=== PATIENT | male | born 1970 | race Caucasian/White ===

== ENCOUNTER → 2023-12-31 | Emergency (ER) | payer BC ==
[~2023-12-31] VITALS: Ht 188 cm; Wt 83.9 kg
[~2023-12-31] MED LIST: AMOXICILLIN TRIHYDRATE 250 MG CAPSULE ONE; HYDROCODONE/APAP 10/325MG TABLET ONE; NAPR-1009 PO; PENI500T PO
[2023-12-31 02:56] VITALS: BP 134/81; TEMP 98.5
[2023-12-31] MEDS: HYDROCODONE/APAP 10/325MG TABLET PO ONE (03:51)
[2023-12-31] MEDS: PENICILLIN V POTASSIUM 500 MG TABLET PO ONE (04:18)
[2023-12-31] MEDS: AMOXICILLIN TRIHYDRATE 250 MG CAPSULE PO ONE (04:22)
[2023-12-31 04:23] VITALS: O2SAT 99
== END | disposition home or self-care (01) ==
LOC: ER 02:08
DX: K08.89 Other specified disorders of teeth and supporting structures (principal)

== ENCOUNTER 2024-02-16 04:39 | Emergency (ER) | payer BC, OTHER ==
[~2024-02-16] VITALS: Ht 188 cm; Wt 86.2 kg
[~2024-02-16 04:39] MED LIST changes: -AMOXICILLIN TRIHYDRATE 250 MG CAPSULE ONE; -HYDROCODONE/APAP 10/325MG TABLET ONE
[2024-02-16 06:10] VITALS: BP 134/80; TEMP 98.3; O2SAT 99
[2024-02-16] MEDS ORDERED: AMOXICILLIN TRIHYDRATE 250 MG CAPSULE ONE (06:36)
[2024-02-16] MEDS ORDERED: IBUPROFEN 600 MG TABLET ONE (06:36)
[2024-02-16] MEDS: IBUPROFEN 600 MG TABLET PO ONE (06:37)
[2024-02-16] MEDS: AMOXICILLIN TRIHYDRATE 500 MG CAPSULE PO ONE (06:37)
[2024-02-16] MEDS ORDERED: AMOX500C2 PO (06:53)
== END 2024-02-16 07:01 | disposition home or self-care (01) ==
LOC: ER 04:40
DX: J02.9 Acute pharyngitis, unspecified (principal); Z60.2 Problems related to living alone